=== PATIENT | male | born 2000 | race Caucasian/White ===

== ENCOUNTER 2024-05-18 08:10 | Emergency (ER) | payer BC, SELFPAY ==
[2024-05-18] MEDS ORDERED: Ondansetron PF 4 MG/2 ML Vial ONE (08:44)
[2024-05-18] MEDS ORDERED: Sodium Chloride 0.9% 1,000 ML ONE (08:44)
[2024-05-18] MEDS ORDERED: Loperamide HCl 2 MG CAP ONE (08:44)
[2024-05-18] MEDS ORDERED: Pantoprazole 40 MG VIAL ONE (08:44)
[2024-05-18 10:45] LABS: #Eosinophils 0.1 thou/uL (0.0-0.7); #Lymphocytes 0.4 thou/uL (1.20-3.40); #Monocytes 0.5 thou/uL (0.11-0.59); #Neutrophils 10.5 thou/uL (1.40-6.50); %Basophils 0.3 % (0.0-1.0); %Eosinophils 0.5 % (0.0-10.0); %Lymphocytes 3.6 % (21.0-51.0); %Monocytes 4.4 % (0.0-10.0); %Neutrophils 91.2 % (42.0-75.0); Hematocrit 48.2 % (42.0-52.0); Hemoglobin 15.9 g/dL (14.0-18.0); Mean Corpuscular Hemoglobin 27.2 pg (27.0-31.0); Mean Corpuscular Volume 82.6 fl (78.0-98.0); Mean Platelet Volume 8.1 fL (7.4-10.4); Platelet Count 284 10x3/uL (130-400); RBC Distribution Width 11.3 % (11.5-14.5); Red Blood Cell (RBC) Count 5.83 mill/uL (4.70-6.10); White Blood Cell (WBC) Count 11.5 10x3/uL (4.8-10.8)
[2024-05-18 10:53] LABS: INR-International Normal Ratio 1.2; Prothrombin Time 15.1 sec (12.0-14.7)
[2024-05-18 10:58] LABS: ALT (SGPT) 34 U/L (Less than 45); AST (SGOT) 27 U/L (11-34); Alkaline Phosphatase 63 U/L (40-110); Anion Gap 14 mmol/L (10-20); BUN (Urea Nitrogen) 14 mg/dL (8.9-20.6); Bilirubin, Total 2.5 mg/dL (0.3-1.2); Calc. Creatinine Clearance 0 mL/min (70-130); Calcium 10.4 mg/dL (7.8-10.44); Carbon Dioxide 25 mmol/L (22-29); Chloride 105 mmol/L (98-107); Estimated GFR 86; Glucose 109 mg/dL (70-105); Potassium 4.2 mmol/L (3.5-5.1); Sodium 140 mmol/L (136-145)
[2024-05-18 11:07] LABS: PTT 29.5 sec (22.9-36.1)
== END 2024-05-18 11:41 | disposition home or self-care (01) ==
LOC: NAV ERS 08:10
DX: A08.4 Viral intestinal infection, unspecified (principal); Z87.891 Personal history of nicotine dependence
CPT/HCPCS: 36415; 85730; 96361; 96374; 96375; J2405; J2470; J7030